=== PATIENT | female | born 1980 | race Caucasian/White ===

== ENCOUNTER 2016-12-01 19:24 | Emergency (ER) | payer BC ==
[2016-12-01] MEDS ORDERED: HYDROmorphone 2 MG/ML SDV ONE (19:43)
[2016-12-01] MEDS ORDERED: HYDROmorphone 2 MG/ML SDV IVPUSH ONE ×2 (19:44→21:05)
[2016-12-01] MEDS ORDERED: Ketorolac 30 MG/ML SDV IVPUSH ONE (19:53)
[2016-12-01] MEDS ORDERED: Iopamidol 755 Mg/ML 100 ML Bottle IV ONE (20:04)
[2016-12-01] MEDS ORDERED: Sodium Chloride 0.9% 1,000 ML IV ONE (20:39)
[2016-12-01] MEDS ORDERED: Tamsulosin 0.4 MG Cap.ER PO ONE ×2 (21:46→21:47)
[2016-12-01] MEDS ORDERED: Acetaminophen/HYDROcodone 325-5 MG Tab PO ONE (21:51)
[2016-12-01 22:11] VITALS: BP 117/67
--- NOTE | 2016-12-02 07:41 | ER ---
DATE SEEN: 12/01/2016 CHIEF COMPLAINT: Abdominal pain. HISTORY OF PRESENT ILLNESS: This is a 36-year-old female with sudden onset of pain in right lower quadrant for 1 hour, severe, associated with mild sweating, but no nausea or vomiting. No urinary symptoms. REVIEW OF SYSTEMS: Last menstrual period 2 weeks ago. PAST MEDICAL HISTORY: Kidney stones. ALLERGIES: None. PHYSICAL EXAMINATION: GENERAL: Appears very uncomfortable. VITAL SIGNS: Her blood pressure initially was 155/125 and temperature 98.1. ABDOMEN: Soft with mild tenderness in the right lower quadrant. No rebound. No rigidity. Bowel sounds are present. LABORATORY DATA: Normal electrolytes and CBC. Urine showed moderate occult blood. Few bacteria. On CT, 6 mm ureteric calculi. IMPRESSION: Ureteric calculi. PLAN: 1 L of normal saline, 30 mg of Toradol, and 2 mg of Dilaudid. The patient's symptoms improved. I discussed with Dr. Tiwari. Advised Flomax and an appointment tomorrow at the [facility]. Return to the ED if symptoms get worse tonight for admission and possible procedure this evening or tomorrow morning. Time seen was 1930 hours. /[id number] GUILHERME/TIBURCIO
--- NOTE | 2016-12-02 12:18 | CT ---
INDICATION: Right lower quadrant pain, question appendicitis. CT ABDOMEN AND PELVIS WITH CONTRAST: Spiral 2.5-mm axial sections were obtained through the abdomen and pelvis with sagittal and coronal reconstructions and 93 mL Isovue-370 at 2.7 mL per second, 12/01/2016, and compared with previous study of 07/05/2016. Total Exam DLP = 1213.12 mGy-cm. The lower lung russo and pleural spaces visualized appeared normal. The gallbladder is absent, compatible with history of its removal. The liver appeared normal. The common bile duct appeared normal in caliber for a post cholecystectomy patient. The left kidney and both adrenal glands, spleen, and pancreas appeared normal. There is pyelocaliectasis and ureterectasis on the right with the right kidney otherwise normal in appearance. A moderate degree of obstructive uropathy is present down to the level of the ureterovesical junction on the right, where a 6 -mm calculus is lodged. The urinary bladder is almost completely empty. There are again noted some minimal calcifications at the area of the right ovary with no significant enlargement in that area. No definite mass is seen compared with 07/05/2016. No other organomegaly, mass lesions, free fluid collections, or air-fluid levels were identified. What appears to be the appendix appeared normal with no evidence of appendicitis. IMPRESSION: 1. Obstructive uropathy on the right due to a 6-mm calculus at the right ureterovesical junction. 2. Post cholecystectomy. 3. Calcification at the right ovary with little change compared with the previous examination of 07/05/2016. CT PELVIS: Examination of the pelvis was obtained by CT, as noted above and compared with 07/05/2016, again reveals calcification and small cystic change at the right ovary. This is essentially unchanged from the previous examination. No finding to suggest a significant neoplastic process is identified in that area. There is evidence of a new finding in the pelvis of obstructive uropathy on the right due to a 6-mm calculus at the ureterovesical junction on the right. Report was called to Dr. Lopez at 2025 hours, 12/01/2016. JOE
== END 2016-12-01 22:15 | disposition home or self-care (01) ==
LOC: FB.ED 19:24
DX: N20.1 Calculus of ureter (principal)
CPT/HCPCS: 36415; 74177; 80048; 81001; 81025; 85025; 96361; 96374; 96375; 96376; 99284; A9270; J1170; J1885; J7040; Q9967

== ENCOUNTER 2017-06-12 20:58 | Emergency (ER) | payer BC, MEDICAID ==
[2017-06-12] MEDS ORDERED: cloNIDine 0.1 MG Tab PO ONE (21:14)
[2017-06-12 21:54] VITALS: BP 158/108
--- NOTE | 2017-06-14 00:56 | ER ---
DATE SEEN: 06/12/2017 TIME SEEN: 2100 hours. CHIEF COMPLAINT: 1. Pain tooth. 2. Hypertension. HISTORY OF PRESENT ILLNESS: This is a 37-year-old female, who was seen in the walk-in clinic because of pain tooth. She was noted to have high blood pressure. She is supposed to be taking hydrochlorothiazide, but has not taken in months. She is otherwise asymptomatic. REVIEW OF SYSTEMS: All other systems negative. ALLERGIES: No known allergies. PHYSICAL EXAMINATION: GENERAL: She is not in distress. VITAL SIGNS: Initial blood pressure 187/105. She has a normal pulse. ENT: Negative. NECK: No JVD. CHEST: Clear. CARDIOVASCULAR: Normal. IMPRESSION: Uncontrolled hypertension. PLAN: Clonidine x1 dose. Blood pressure came down to 158/108. Discharged home on lisinopril and hydrochlorothiazide 1 tablet a day and follow up in the office next week. Return to the ED with worsening symptoms. /[id number] GUILHERME/TIBURCIO
== END 2017-06-12 21:49 | disposition home or self-care (01) ==
LOC: FB.ED 20:58
DX: I10 Essential (primary) hypertension (principal); K08.89 Other specified disorders of teeth and supporting structures
CPT/HCPCS: 99283; A9270

== ENCOUNTER 2017-09-17 20:24 | Emergency (ER) | payer SELFPAY ==
[2017-09-17 22:31] VITALS: BP 134/82
--- NOTE | 2017-09-18 12:45 | CR ---
INDICATION: Chest pain. CHEST: PA and lateral views of the chest were obtained 09/17/2017 - no comparisons. Heart and mediastinum were unremarkable. A minimal dextroconvex scoliosis at the thoracolumbar spine is suggested - correlate clinically. Evidence of exogenous obesity is noted. Overlying EKG leads are noted. A definite active infiltrate or effusion was not identified. IMPRESSION: No acute process - multiple findings as noted above. MTDD
--- NOTE | 2017-09-18 14:10 | ER ---
DATE SEEN: 09/17/2017 TIME SEEN: The patient was seen at 2058 hours. CHIEF COMPLAINT: Chest pressure. HISTORY OF PRESENT ILLNESS: At 7 p.m. the patient had onset of chest pressure. She noted her home blood pressure measurement was 150/100 and vomited x2. She had similar pressure 2 weeks ago, was seen in [place] [facility] and has CAT scan of her head because she had headache, that CAT scan was negative. She takes losartan for blood pressure. In the past, she has used lisinopril, and this caused coughing, so it was discontinued. She does not take any blood pressure medicine now. She is overweight, weighs 188 pounds. Today describes her chest discomfort as 7/10 in discomfort, left anterior chest wall between her shoulder and her sternum. She places her hand over this area to demonstrate this. She notes it radiates to her posterior neck and scapular region and down her left arm and causes some tingling in her fingers. She noted the pain occurred tonight on her way home from [employer]. It was a pleasant day and she did not do anything unusual. Now, the chest discomfort is 5/10 in intensity, increases with deep and inspiration. She denies any new fever or cough or VTE or long distance rides, or leg pain or leg swelling. Last meal at 1500 hours was Maori fries. She has had previous cholecystectomy. She is a 4, para 3-1-0-3, nonsmoker and rare alcohol use. FAMILY HISTORY: Mother had elevated blood pressure. Maternal grandfather and maternal grandmother at age 52 and 60 of congestive heart failure. Father, she does not know anything about her father. She has 1 brother, who is alive and well, and half brother who is alive and well. 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 "She is on her feet all day." CURRENT MEDICATIONS: Losartan/hydrochlorothiazide 1 tablet daily 50/12.5. ALLERGIES: Lisinopril causes cough. PHYSICAL EXAMINATION: CONSTITUTION: Pleasant, mildly overweight woman, in mild distress. She is attended by her . She has appropriately articulate and describes things here the ER very nicely. HEENT: PERRLA intact. Pharynx without abnormality. NECK: No thyromegaly or masses. No cervical adenopathy. No tracheal tug or tracheal deviation (she is a nonsmoker). LUNGS: Clear without rales, rhonchi, or wheezes. HEART: S1, S2. No irregular rate and rhythm. No tachycardia. Chest wall demonstrated pain 2, 3, 4, costochondral joints and ribs 4, 5, 6, sternal chondral and costochondral joints. She feels the same pain that she was talking about before. She notes she has been lifting at the shelter as a MARKETING PR INTERN. ABDOMEN: Nontender. No hepatosplenomegaly. Bowel sounds are normal. Old healed scars. No hernia noted. No CVA percussion to tenderness. PELVIC: Not performed. RECTAL: Not performed. EXTREMITIES: Lower extremities without edema. No linear vascular abnormalities in lower extremities. No edema. NEURO: There are normal deep tendon reflexes in the upper and lower extremities. Cranial nerves 2 through 12 intact. No pronator drift. No muscle weakness in the upper and lower extremities. Gait appropriate. DIAGNOSTIC DATA: EKG normal sinus rhythm, 66. LABORATORY FINDINGS: Troponin is negative. D-dimer is negative. Potassium low normal 3.4. CBC is normal with a hemoglobin of 13.2, white count 8000, PMNs 50, lymphocytes 39, monos 7, and platelets 268,000. Urine drug screen is negative. Urinalysis negative. Chest x-ray is normal. No abnormalities noted. ASSESSMENT: 1. Left chest wall pain causing chest pains. 2. Chest wall pain secondary to costochondritis who works as a MARKETING PR INTERN. 3. Mild obesity. 4. Hypertension. Repeat blood pressure in the ED, moderately elevated. PLAN: Add Lopressor 25 mg. Follow up with doctor in a week. Continue other antihypertensive medicine. /[id number] VELASQUEZ/TIBURCIO DELA CRUZD
== END 2017-09-17 22:30 | disposition home or self-care (01) ==
LOC: FB.ED 20:24
DX: R07.89 Other chest pain (principal); I10 Essential (primary) hypertension; E66.9 Obesity, unspecified; Z68.28 Body mass index [BMI] 28.0-28.9, adult; Z88.8 Allergy status to other drugs, medicaments and biological substances; Z79.899 Other long term (current) drug therapy
CPT/HCPCS: 36415; 71046; 80053; 80305; 84484; 85025; 85379; 93005; 99285

== ENCOUNTER 2017-09-27 06:47 | Emergency (ER) | payer BC, MEDICAID ==
--- NOTE | 2017-09-27 07:25 | EDM.PDOC ---
ED HPI GENERAL MEDICAL PROBLEM - General Chief Complaint: General Stated Complaint: BLOOD PRESSURE Time Seen by Provider: 09/27/17 07:00 Source of Information: Reports: Patient, Family History Limitations: Reports: No Limitations - History of Present Illness INITIAL COMMENTS - FREE TEXT/NARRATIVE: 37 y.o.w.f came to the ed due to "not feeling well" at work. Her BP was checked which was elevated with a HR of 124. Pt felt dizzy and nauseated with back pain and ab. pain which made her to come to the ed. Pt has a h/o Kidney stones and on Ovarian cyst at her left side. No trauma. Tubal ligation few years ago. Pt has a h/o HTN, for which she takes lorsartan. No C/P. No Dysuria. No other acute med issues. BP 163/89 pulse 124 Pulse ox 98% on RA RR 18 temp 36.4 Onset Date: 09/27/17 Onset Time: 06:00 Duration: Intermittent Location: Reports: Back, Generalized Quality: Reports: Ache, Burning, Dull, Pressure Severity: Moderate Improves with: Reports: Rest Worsens with: Reports: Movement Context: Reports: Sick Contact Associated Symptoms: Reports: Nausea/Vomiting - Related Data Allergies Allergy/AdvReac Type Severity Reaction Status Date / Time No Known Allergies Allergy Verified 09/27/17 06:56 Home Meds: Home Meds Losartan/Hydrochlorothiazide [Losartan-HCTZ 50-12.5 MG] 1 each PO DAILY [History] Ondansetron [Zofran ODT] 4 mg PO Q6H PRN #20 tab.dis 09/27/17 [Rx] Orphenadrine [Norflex] 100 mg PO QID PRN #16 tab.er 09/27/17 [Rx] Past Medical History Cardiovascular History: Reports: Hypertension Gastrointestinal History: Reports: Cholelithiasis Genitourinary History: Reports: Renal Calculus 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 Musculoskeletal History: RIB AND SPINE FRACTURE - Infectious Disease History Infectious Disease History: Reports: Chicken Pox - Past Surgical History GI Surgical History: Reports: Cholecystectomy Female Surgical History: Reports: Lithotripsy/ESWL, Tubal Ligation Social & Family History - Family History Family Medical History: Noncontributory Cardiac: Reports: HI Other Cardiac Family History: grandfather had HI - Tobacco Use Smoking Status *Q: Former Smoker Used Tobacco, but Quit: Yes Month/Year Tobacco Last Used: 36 Second Hand Smoke Exposure: No - Caffeine Use Caffeine Use: Reports: Coffee - Recreational Drug Use Recreational Drug Use: No ED ROS GENERAL - Review of Systems Review Of Systems: See Below Constitutional: Reports: No Symptoms HEENT: Reports: No Symptoms Respiratory: Reports: No Symptoms Cardiovascular: Reports: Palpitations Endocrine: Reports: No Symptoms GI/Abdominal: Reports: No Symptoms, Nausea : Reports: Flank Pain Musculoskeletal: Reports: No Symptoms Skin: Reports: No Symptoms Neurological: Reports: No Symptoms Psychiatric: Reports: No Symptoms Hematologic/Lymphatic: Reports: No Symptoms Immunologic: Reports: No Symptoms ED EXAM, GENERAL - Physical Exam Exam: See Below Exam Limited By: No Limitations General Appearance: Alert, WD/WN, Mild Distress Eye Exam: Bilateral Eye: Normal Inspection Ears: Normal External Exam Ear Exam: Bilateral Ear: Auricle Normal Nose: Normal Inspection, Normal Mucosa Throat/Mouth: Normal Lips, Normal Gums, Normal Oropharynx, Normal Voice, No Airway Compromise, Other (dry mucosal membranes ) Head: Atraumatic, Normocephalic Neck: Normal Inspection, Supple, Non-Tender, Full Range of Motion Respiratory/Chest: No Respiratory Distress, Normal Breath Sounds, No Accessory Muscle Use, Chest Non-Tender Cardiovascular: No Edema, No JVD, No Murmur, No Rub, Tachycardia Peripheral Pulses: 1+: Radial (L) GI/Abdominal: Normal Bowel Sounds, Tender (RLQ of abdomen) (Female) Exam: Deferred Rectal (Female) Exam: Deferred Back Exam: Muscle Spasm (left mid back) Extremities: Normal Inspection, Normal Range of Motion, Non-Tender, No Pedal Edema, Normal Capillary Refill Neurological: Alert, Oriented, CN II-XII Intact, Normal Cognition, Normal Gait, No Motor/Sensory Deficits Psychiatric: Normal Affect, Normal Mood Skin Exam: Warm, Intact, Normal Color, No Rash Lymphatic: No Adenopathy EKG INTERPRETATION EKG Date: 09/27/17 Time: 07:40 Rhythm: NSR Rate (Beats/Min): 113 [place]: Normal P-Wave: Present QRS: Normal ST-T: Normal QT: Normal Comparison: NA - No Prior EKG Course - Vital Signs Text/Narrative:: 37 y.o.w.f came to the ed due to "not feeling well" at work. Her BP was checked which was elevated with a HR of 124. Pt felt dizzy and nauseated with back pain and ab. pain which made her to come to the ed. Pt has a h/o Kidney stones and on Ovarian cyst at her left side. No trauma. Tubal ligation few years ago. Pt has a h/o HTN, for which she takes lorsartan. No C/P. No Dysuria. No other acute med issues. BP 163/89 pulse 124 Pulse ox 98% on RA RR 18 temp 36.4 PE: WNWD W F with mid left upper back pain, Right flank pain, palpitations and not feeling well, does not smoke or drink. Imaging: CT abd/pevis neg for Appy and Kidney stones as per RAD, Pelvic US is: neg Labs; CBC, BMP nl UA pos for luis alfredo hematuria and bili Impression: Mid upper back pain. RLQ abd pain with palpation. Micr. hematuria, Palpitations, dehydration Tx: toradol, NS, Zofran, Norflex, reglan, Metoprolol and morphine sulphate Reexam: BP was 154/87 and pulse was 98 BPM on D/C, Pt improved Plan: D/C with instructions Last Recorded V/S: Last Vital Signs Temp 36.8 C 09/27/17 10:30 Pulse 88 09/27/17 12:42 Resp 14 09/27/17 12:42 BP 146/106 H 09/27/17 12:42 Pulse Ox 100 09/27/17 12:42 Orthostatic Blood Pressure [ 152/104 Standing] Orthostatic Blood Pressure [ 156/119 Sitting] Orthostatic Blood Pressure [ 152/104 Supine] - Orders/Labs/Meds Orders: Active Orders 24 hr Category Date Time Status Orthostatic Vital Signs [RC] ASDIRECTED Care 09/27/17 08:15 Active HCG QUALITATIVE,URINE [URCHEM] Stat Lab 09/27/17 08:05 Ordered UA W/MICROSCOPIC [URIN] Stat Lab 09/27/17 08:05 Ordered EKG 12 Lead [EK] Routine Ther 09/27/17 07:24 Ordered Labs: Laboratory Tests 09/27/17 09/27/17 09/27/17 Range/Units 07:39 07:39 07:39 WBC 7.7 (4.5-12.0) X10-3/uL RBC 5.14 (3.23-5.20) x10(6)uL Hgb 14.0 (11.5-15.5) g/dL Hct 43.0 (30.0-51.3) % MCV 83.7 (80-96) fL MCH 27.3 L (27.7-33.6) pg MCHC 32.6 (32.2-35.4) g/dL RDW 12.7 (11.5-15.5) % Plt Count 264 (125-369) X10(3)uL MPV 8.5 (7.4-10.4) fL Neut % (Auto) 79.8 (46-82) % Lymph % (Auto) 14.7 (13-37) % [place] % (Auto) 4.8 (4-12) % Eos % (Auto) 1 (1.0-5.0) % Baso % (Auto) 0 (0-2) % Neut # (Auto) 6.2 (1.6-8.3) # Lymph # (Auto) 1.1 (0.6-5.0) # [place] # (Auto) 0.4 (0.0-1.3) # Eos # (Auto) 0.0 (0.0-0.8) # Baso # (Auto) 0.0 (0.0-0.2) # Sodium 139 (135-145) mmol/L Potassium 3.5 (3.5-5.3) mmol/L Chloride 102 (100-110) mmol/L Carbon Dioxide 26 (21-32) mmol/L BUN 8 (7-18) mg/dL Creatinine 0.8 (0.55-1.02) mg/dL Est Cr Clr Drug Dosing 98.07 mL/min Estimated GFR (MDRD) > 60 (>60) BUN/Creatinine Ratio 10.0 (9-20) Glucose 96 (80-116) mg/dL Calcium 9.4 (8.6-10.2) mg/dL TSH, Ultra Sensitive 1.65 (0.36-3.74) IU/mL Urine Color (YELLOW) Urine Appearance (CLEAR) Urine pH (5.0-6.5) Ur Specific [place] (1.010-1.025) Urine Protein (NEGATIVE) mg/dL Urine Glucose (UA) (NEGATIVE) mg/dL Urine Ketones (NEGATIVE) mg/dL Urine Occult Blood (NEGATIVE) Urine Nitrite (NEGATIVE) Urine Bilirubin (NEGATIVE) Urine Urobilinogen (NEGATIVE) mg/dL Ur Leukocyte Esterase (NEGATIVE) Urine RBC (0) Urine WBC (0) Ur Squamous Epith Cells (NS,R,O) Urine Bacteria (NS) Urine HCG, Qual (NEGATIVE) 09/27/17 09/27/17 Range/Units 08:05 08:05 WBC (4.5-12.0) X10-3/uL RBC (3.23-5.20) x10(6)uL Hgb (11.5-15.5) g/dL Hct (30.0-51.3) % MCV (80-96) fL MCH (27.7-33.6) pg MCHC (32.2-35.4) g/dL RDW (11.5-15.5) % Plt Count (125-369) X10(3)uL MPV (7.4-10.4) fL Neut % (Auto) (46-82) % Lymph % (Auto) (13-37) % [place] % (Auto) (4-12) % Eos % (Auto) (1.0-5.0) % Baso % (Auto) (0-2) % Neut # (Auto) (1.6-8.3) # Lymph # (Auto) (0.6-5.0) # [place] # (Auto) (0.0-1.3) # Eos # (Auto) (0.0-0.8) # Baso # (Auto) (0.0-0.2) # Sodium (135-145) mmol/L Potassium (3.5-5.3) mmol/L Chloride (100-110) mmol/L Carbon Dioxide (21-32) mmol/L BUN (7-18) mg/dL Creatinine (0.55-1.02) mg/dL Est Cr Clr Drug Dosing mL/min Estimated GFR (MDRD) (>60) BUN/Creatinine Ratio (9-20) Glucose (80-116) mg/dL Calcium (8.6-10.2) mg/dL TSH, Ultra Sensitive (0.36-3.74) IU/mL Urine Color Yellow (YELLOW) Urine Appearance Clear (CLEAR) Urine pH 6.5 (5.0-6.5) Ur Specific [place] 1.010 (1.010-1.025) Urine Protein Negative (NEGATIVE) mg/dL Urine Glucose (UA) Normal (NEGATIVE) mg/dL Urine Ketones 15 H (NEGATIVE) mg/dL Urine Occult Blood Moderate H (NEGATIVE) Urine Nitrite Negative (NEGATIVE) Urine Bilirubin Moderate H (NEGATIVE) Urine Urobilinogen Normal (NEGATIVE) mg/dL Ur Leukocyte Esterase Negative (NEGATIVE) Urine RBC 5-10 (0) Urine WBC 0-5 (0) Ur Squamous Epith Cells Many H (NS,R,O) Urine Bacteria Many H (NS) Urine HCG, Qual Negative (NEGATIVE) Meds: Medications Discontinued Medications Generic Name Dose Route Start Last Admin Trade Name Freq PRN Reason Stop Dose Admin Sodium Chloride 1,000 mls @ 999 mls/hr 09/27/17 07:40 09/27/17 08:24 Normal Saline IV 09/27/17 08:40 999 mls/hr .BOLUS ONE Administration Sodium Chloride 1,000 mls @ 999 mls/hr 09/27/17 10:04 09/27/17 10:31 Normal Saline IV 09/27/17 11:04 999 mls/hr .BOLUS ONE Administration Ketorolac Tromethamine 30 mg 09/27/17 08:11 09/27/17 08:32 Toradol IVPUSH 09/27/17 08:12 30 mg ONETIME ONE Administration Metoclopramide HCl 10 mg 09/27/17 09:09 09/27/17 09:34 Reglan IV 09/27/17 09:10 10 mg ONETIME STA Administration Metoprolol Tartrate 2.5 mg 09/27/17 10:04 09/27/17 10:32 Lopressor IVPUSH 09/27/17 10:05 2.5 mg ONETIME ONE Administration Morphine Sulfate 2 mg 09/27/17 10:55 09/27/17 11:02 Morphine IVPUSH 09/27/17 10:56 Not Given ONETIME ONE Morphine Sulfate Confirm 09/27/17 10:58 09/27/17 11:02 Morphine Administered 09/27/17 10:59 2 mg Dose Administration 4 mg .ROUTE .STK-MED ONE Ondansetron HCl 8 mg 09/27/17 08:10 09/27/17 08:24 Zofran IVPUSH 09/27/17 08:11 8 mg ONETIME ONE Administration Orphenadrine Citrate 60 mg 09/27/17 12:34 09/27/17 12:39 Norflex IM 09/27/17 12:35 60 mg ONETIME STA Administration Departure - Departure Time of Disposition: 12:47 Disposition: Home, Self-Care 01 Condition: Good Clinical Impression: Pelvic pain, Nausea & vomiting, Dehydration Back pain Qualifiers: Back pain location: thoracic back pain Back pain laterality: left - Discharge Information Prescriptions: Ondansetron [Zofran ODT] 4 mg PO Q6H PRN #20 tab.dis PRN Reason: Nausea Orphenadrine [Norflex] 100 mg PO QID PRN #16 tab.er PRN Reason: back spasm Instructions: Metoclopramide injection, Ketorolac injection, Ondansetron injection, Dehydration, Adult, Devd-[id number], Thoracic Strain, [id number], Hypertension, Gshe-ah-[id number], Morphine injection solution Referrals: Pk Lopez MD [Primary Care Provider] - Forms: ED Department Discharge, ED Return to Work/School Form Additional Instructions: Please take the meds as recommended, please follow up with your regular MD for recheck within next 3-5 days at clinic, come back if your symptoms get worse acutely. - My Orders Last 24 Hours: My Active Orders 09/27/17 07:24 EKG 12 Lead [EK] Routine 09/27/17 08:05 HCG QUALITATIVE,URINE [URCHEM] Stat UA W/MICROSCOPIC [URIN] Stat 09/27/17 08:15 Orthostatic Vital Signs [RC] ASDIRECTED - Assessment/Plan Last 24 Hours: My Active Orders 09/27/17 07:24 EKG 12 Lead [EK] Routine 09/27/17 08:05 HCG QUALITATIVE,URINE [URCHEM] Stat UA W/MICROSCOPIC [URIN] Stat 09/27/17 08:15 Orthostatic Vital Signs [RC] ASDIRECTED
[2017-09-27] MEDS ORDERED: Sodium Chloride 0.9% 1,000 ML IV ONE ×2 (07:40→10:04)
[2017-09-27] MEDS ORDERED: Ondansetron 4 MG/2 ML SDV IVPUSH ONE (08:10)
[2017-09-27] MEDS ORDERED: Ketorolac 30 MG/ML SDV IVPUSH ONE (08:11)
[2017-09-27] MEDS ORDERED: Metoclopramide 10 MG/2 ML SDV IV STA (09:09)
[2017-09-27] MEDS ORDERED: Metoprolol Tartrate 5 MG/5 ML SDV IVPUSH ONE (10:04)
[2017-09-27] MEDS ORDERED: Morphine 2 MG/ML Syringe IVPUSH ONE (10:55)
[2017-09-27] MEDS ORDERED: Morphine 4 MG/ML Syringe ONE (10:58)
--- NOTE | 2017-09-27 11:06 | CT ---
INDICATION: Right lower quadrant abdominal pain, possible appendicitis. Question ovarian cyst. Pain with palpation in that area. Also left flank pain with history of kidney stones. Occult blood in urine. CT ABDOMEN AND PELVIS WITHOUT CONTRAST: Spiral 1.25-mm axial sections were obtained through the abdomen and pelvis without contrast, with sagittal and coronal reconstructions, 09/27/2017, and compared with 12/01/2016. Total Exam DLP = 1944.51 mGy-cm. Previously, there was obstructive uropathy on the right due to a calculus at the ureterovesical junction. At this time, there is no obstructive uropathy and no calculi seen in the kidneys, pyelocaliceal systems, or bladder. At the left ovary, there is a low-density mass of approximately 3 cm, likely representing a follicular cyst. Ultrasound of the pelvis would be confirmatory and could be obtained in 2 weeks for confirmation of involution. The right ovary appeared grossly unremarkable. The appendix appeared normal and is visualized on axial images #204 through # 240. No definite hernia was seen, although a minimal right inguinal hernia, including only fat may be present. This is a very minimal finding. No evidence of bowel obstruction or free air was seen. No gross herniation was identified. The liver appears normal with clips at the cystic duct, compatible with cholecystectomy. The spleen, adrenal glands, and pancreas appeared normal. No evidence of a retroperitoneal mass was identified, with some tiny retroperitoneal lymph nodes which are nonspecific. No other mass lesions, organomegaly, or free fluid collections, or nonvascular pathologic calcifications were identified. There are a few phleboliths in the pelvis. IMPRESSION: 1. No evidence of obstructive uropathy or renal calcinosis. No bladder calculi. 2. Probable physiologic cyst left ovary. 3. Appendix was unremarkable. 4. Tiny right inguinal hernia, including only fat, of questionable clinical significance. 5. Post cholecystectomy. 6. Probable follicular cyst left ovary, which could be confirmed by an ultrasound of the pelvis in 2 weeks. Report was called to Dr. Amato immediately after interpretation of the examination this a.m., 09/27/2017. [facility] CLINICMayelin
[2017-09-27 12:43] VITALS: BP 146/106
--- NOTE | 2017-09-27 14:12 | US ---
INDICATION: Pelvic pain right side. ULTRASOUND OF THE PELVIS, NON-OB: Multiple ultrasonic images were obtained with transabdominal probe and revealed the uterus to measure 10.3 x 3.6 x 4.9 cm. The right ovary measured 2.4 x 1.4 x 2.2 cm. The left ovary measured 3.82 x 2.62 x 2.51 cm. A 2-cm cystic structure is noted in the left ovary, which likely represents a follicular cyst. It measured approximately 21 mm. The uterus had a normal appearance, except to note a nabothian cyst at the cervix which measured approximately 11 mm x 11.5 mm. The endometrial cavity echo appeared grossly normal, measuring approximately 16 mm. No definite endometrial or uterine abnormality was identified. There are a few small follicles in the right ovary, which was otherwise unremarkable. No adnexal mass lesion or free fluid collection was identified. The urinary bladder, as partly visualized, had a normal appearance. IMPRESSION: As visualized, essentially normal pelvic ultrasound. Probable follicular cyst, 2 cm, at the left ovary. Need better visualization of the right side of the uterus with transvaginal probe. INDICATION: Pelvic pain right side/need better visualization of the uterus and ovaries than possible with the transabdominal probe. TRANSVAGINAL PELVIC ULTRASOUND NON-OB: Utilizing transvaginal probe, multiple ultrasonic images revealed the uterus to measure 9.7 x 5.47 x 4.4 cm. Endometrial cavity echo was 12 mm. The right ovary measured 2.4 x 2.1 x 1.6 cm. The left ovary measured 3.5 x 3.7 x 2.8 cm. The uterus, including the endometrial cavity echo appeared to be normal. No mass lesions were seen. No adnexal mass lesions or free fluid collections were identified. At the left ovary, there is a 2.3 cm cystic mass, compatible with a follicular cyst, which could be confirmed by re-examination by pelvic ultrasound in 2 weeks or 6 weeks. A few additional follicles are suggested at the left ovary. A minimal amount of free fluid adjacent to the left ovary is suggested and is likely to be physiologic. There is some fluid in the endocervical canal, which may be on the basis of menstrual cycle, but should be correlated clinically. The right ovary was not well visualized with the transvaginal probe. It appears to include a probable large follicle and a few small follicles. IMPRESSION: Minimal follicular changes and one follicular cyst on the left with some minimal follicles and one slightly prominent follicle on the right, measuring only 10 mm. No suspicious focal masses could be identified. Only a minimal amount of fluid is suggested near the left ovary, which may be physiologic. No specific abnormality could be identified in the left adnexa to suggest an etiology for the patient's right-sided pain. Question the possibility of a process such as mid cycle pain. Report was called to Dr. Amato at 1336 hours, 09/27/2017. [facility]
== END 2017-09-27 13:05 | disposition home or self-care (01) ==
LOC: FB.ED 06:47
DX: E86.0 Dehydration (principal); R00.2 Palpitations; M54.6 Pain in thoracic spine; R10.31 Right lower quadrant pain; R10.2 Pelvic and perineal pain; R11.2 Nausea with vomiting, unspecified; I10 Essential (primary) hypertension; Z87.891 Personal history of nicotine dependence
CPT/HCPCS: 36415; 74176; 76830; 76857; 80048; 81001; 81025; 84443; 85025; 93005; 96361; 96372; 96374; 96375; 99284; J1885; J2270; J2360; J2405; J2765; J7040; J3490

== ENCOUNTER 2019-09-12 22:32 | Emergency (ER) | payer MEDICAID, OTHER ==
[2019-09-12] MEDS ORDERED: Sodium Chloride 0.9% 10 ML Syringe FLUSH PRN (22:39)
[2019-09-12] MEDS ORDERED: Ondansetron 4 MG/2 ML SDV IVPUSH ONE (22:40)
[2019-09-12] MEDS ORDERED: Ketorolac 30 MG/ML SDV IVPUSH ONE (22:40)
[2019-09-12] MEDS ORDERED: Sodium Chloride 0.9% 1,000 ML IV SCH (22:45)
[2019-09-12] MEDS ORDERED: Iopamidol 755 Mg/ML 100 ML Bottle IV ONE (23:01)
--- NOTE | 2019-09-13 00:03 | EDM.PDOC ---
ED HPI GENERAL MEDICAL PROBLEM - General Chief Complaint: Flank Pain Stated Complaint: ABDOMINAL PAIN Time Seen by Provider: 09/12/19 22:35 Source of Information: Reports: Patient History Limitations: Reports: No Limitations - History of Present Illness INITIAL COMMENTS - FREE TEXT/NARRATIVE: Patient presented to the ED because of Rt LQ and RUQ pain. The pain is sharp and cramping,7/10. There is associated nausea but no vomiting. there is no fever ,chills, changes in bowel movements or urinary symptoms. She has a h/o nephrolithiasis that needs extraction 2 years ago. - Related Data Allergies Allergy/AdvReac Type Severity Reaction Status Date / Time No Known Allergies Allergy Verified 09/12/19 22:50 Home Meds: Home Meds NK [No Known Home Meds] 09/12/19 [History] Past Medical History Cardiovascular History: Reports: Hypertension Respiratory History: Reports: None Gastrointestinal History: Reports: Cholelithiasis Genitourinary History: Reports: Renal Calculus [employer] History: Reports: Other Musculoskeletal History: RIB AND SPINE FRACTURE Neurological History: Reports: None Psychiatric History: Reports: None Endocrine/Metabolic History: Reports: None Oncologic (Cancer) History: Reports: None Dermatologic History: Reports: None - Infectious Disease History Infectious Disease History: Reports: Chicken Pox - Past Surgical History GI Surgical History: Reports: Cholecystectomy Female Surgical History: Reports: Lithotripsy/ESWL, Tubal Ligation Social & Family History - Family History Family Medical History: Noncontributory Cardiac: Reports: AL Other Cardiac Family History: grandfather had AL - Tobacco Use Smoking Status *Q: Never Smoker - Caffeine Use Caffeine Use: Reports: Soda - Recreational Drug Use Recreational Drug Use: No ED ROS GENERAL - Review of Systems Review Of Systems: See Below Constitutional: Reports: No Symptoms HEENT: Reports: No Symptoms Respiratory: Reports: No Symptoms Cardiovascular: Reports: No Symptoms Endocrine: Reports: No Symptoms GI/Abdominal: Reports: Abdominal Pain, Nausea. Denies: Vomiting Musculoskeletal: Reports: No Symptoms Skin: Reports: No Symptoms Neurological: Reports: No Symptoms ED EXAM, GI/ABD - Physical Exam Exam: See Below Exam Limited By: No Limitations General Appearance: Alert, No Apparent Distress Ears: Normal External Exam, Normal Canal, Hearing Grossly Normal Nose: Normal Inspection, Normal Mucosa Throat/Mouth: Normal Inspection, Normal Lips Head: Atraumatic, Normocephalic Neck: Normal Inspection, Supple, Non-Tender Respiratory/Chest: No Respiratory Distress, Lungs Clear, Normal Breath Sounds Cardiovascular: Normal Peripheral Pulses, Regular Rate, Rhythm, No Edema GI/Abdominal Exam: Normal Bowel Sounds, Soft, Non-Tender Back Exam: Normal Inspection, Full Range of Motion Extremities: Normal Inspection, Normal Range of Motion, Non-Tender Neurological: Alert, CN II-XII Intact Psychiatric: Normal Affect, Normal Mood Skin Exam: Warm Course - Vital Signs Text/Narrative:: Labs reviewed and discussed with patient and verbalized understanding NS 1 L bolus Zofran 4 mg IV x1 Toradol 30 mg IV x1 Last Recorded V/S: Last Vital Signs Temp 36.3 C 09/13/19 00:15 Pulse 96 09/13/19 01:00 Resp 18 09/13/19 01:00 BP 179/116 H 09/13/19 01:00 Pulse Ox 98 09/13/19 01:00 - Orders/Labs/Meds Orders: Active Orders 24 hr Category Date Time Status Abdomen Pelvis w Cont [CT] Stat Exams 09/12/19 22:44 Taken Saline Lock Insert [OM.PC] Routine Oth 09/12/19 22:39 Ordered Labs: Laboratory Tests 09/12/19 09/12/19 09/12/19 Range/Units 22:55 22:55 22:55 WBC 9.7 (4.5-12.0) X10-3/uL RBC 4.97 (3.23-5.20) x10(6)uL Hgb 14.0 (11.5-15.5) g/dL Hct 41.9 (30.0-51.3) % MCV 84.2 (80-96) fL MCH 28.1 (27.7-33.6) pg MCHC 33.4 (32.2-35.4) g/dL RDW 12.9 (11.5-15.5) % Plt Count 191 (125-369) X10(3)uL MPV 9.1 (7.4-10.4) fL Neut % (Auto) 57.2 (46-82) % Lymph % (Auto) 33.3 (13-37) % [place] % (Auto) 6.2 (4-12) % Eos % (Auto) 1 (1.0-5.0) % Baso % (Auto) 2 (0-2) % Neut # (Auto) 5.5 (1.6-8.3) # Lymph # (Auto) 3.2 (0.6-5.0) # [place] # (Auto) 0.6 (0.0-1.3) # Eos # (Auto) 0.1 (0.0-0.8) # Baso # (Auto) 0.2 (0.0-0.2) # Sodium 140 (135-145) mmol/L Potassium 4.1 (3.5-5.3) mmol/L Chloride 104 (100-110) mmol/L Carbon Dioxide 28 (21-32) mmol/L BUN 10 (7-18) mg/dL Creatinine 0.9 (0.55-1.02) mg/dL Est Cr Clr Drug Dosing TNP Estimated GFR (MDRD) > 60 (>60) BUN/Creatinine Ratio 11.1 (9-20) Glucose 86 (80-116) mg/dL Calcium 8.0 L (8.6-10.2) mg/dL Total Bilirubin 0.3 (0.1-1.3) mg/dL AST 27 H D (5-25) IU/L ALT 15 D (12-36) U/L Alkaline Phosphatase 62 (56-112) IU/L Total Protein 7.2 (6.0-8.0) g/dL Albumin 3.3 L (3.5-5.2) g/dL Globulin 3.9 g/dL Albumin/Globulin Ratio 0.9 Amylase 45 (25-115) U/L Lipase 377 (73-393) U/L Urine Color (YELLOW) Urine Appearance (CLEAR) Urine pH (5.0-6.5) Ur Specific [place] (1.010-1.025) Urine Protein (NEGATIVE) mg/dL Urine Glucose (UA) (NORMAL) mg/dL Urine Ketones (NEGATIVE) mg/dL Urine Occult Blood (NEGATIVE) Urine Nitrite (NEGATIVE) Urine Bilirubin (NEGATIVE) Urine Urobilinogen (NEGATIVE) mg/dL Ur Leukocyte Esterase (NEGATIVE) Urine RBC (0-5) Urine WBC (0-5) Ur Squamous Epith Cells (NS,R,O) Amorphous Sediment Urine Bacteria (NS) 09/12/19 Range/Units 23:31 WBC (4.5-12.0) X10-3/uL RBC (3.23-5.20) x10(6)uL Hgb (11.5-15.5) g/dL Hct (30.0-51.3) % MCV (80-96) fL MCH (27.7-33.6) pg MCHC (32.2-35.4) g/dL RDW (11.5-15.5) % Plt Count (125-369) X10(3)uL MPV (7.4-10.4) fL Neut % (Auto) (46-82) % Lymph % (Auto) (13-37) % [place] % (Auto) (4-12) % Eos % (Auto) (1.0-5.0) % Baso % (Auto) (0-2) % Neut # (Auto) (1.6-8.3) # Lymph # (Auto) (0.6-5.0) # [place] # (Auto) (0.0-1.3) # Eos # (Auto) (0.0-0.8) # Baso # (Auto) (0.0-0.2) # Sodium (135-145) mmol/L Potassium (3.5-5.3) mmol/L Chloride (100-110) mmol/L Carbon Dioxide (21-32) mmol/L BUN (7-18) mg/dL Creatinine (0.55-1.02) mg/dL Est Cr Clr Drug Dosing Estimated GFR (MDRD) (>60) BUN/Creatinine Ratio (9-20) Glucose (80-116) mg/dL Calcium (8.6-10.2) mg/dL Total Bilirubin (0.1-1.3) mg/dL AST (5-25) IU/L ALT (12-36) U/L Alkaline Phosphatase (56-112) IU/L Total Protein (6.0-8.0) g/dL Albumin (3.5-5.2) g/dL Globulin g/dL Albumin/Globulin Ratio Amylase (25-115) U/L Lipase (73-393) U/L Urine Color Yellow (YELLOW) Urine Appearance Slightly cloudy (CLEAR) Urine pH 8.0 H (5.0-6.5) Ur Specific [place] 1.010 (1.010-1.025) Urine Protein Negative (NEGATIVE) mg/dL Urine Glucose (UA) Normal (NORMAL) mg/dL Urine Ketones Negative (NEGATIVE) mg/dL Urine Occult Blood Negative (NEGATIVE) Urine Nitrite Negative (NEGATIVE) Urine Bilirubin Negative (NEGATIVE) Urine Urobilinogen Normal (NEGATIVE) mg/dL Ur Leukocyte Esterase Moderate H (NEGATIVE) Urine RBC 0-5 (0-5) Urine WBC 0-5 (0-5) Ur Squamous Epith Cells Moderate H (NS,R,O) Amorphous Sediment Few Urine Bacteria Few H (NS) Meds: Medications Discontinued Medications Generic Name Dose Route Start Last Admin Trade Name Freq PRN Reason Stop Dose Admin Hydralazine HCl 20 mg 09/13/19 00:25 09/13/19 00:33 Apresoline IM 09/13/19 00:26 20 mg NOW STA Administration Sodium Chloride 1,000 mls @ 999 mls/hr 09/12/19 22:45 09/12/19 22:58 Normal Saline IV 999 mls/hr ASDIRECTED FLORENCIO Administration Iopamidol 100 ml 09/12/19 23:01 09/12/19 23:16 Isovue-370 (76%) IV 09/12/19 23:02 80 ml . DIRECTED ONE Administration Ketorolac Tromethamine 30 mg 09/12/19 22:40 09/12/19 23:00 Toradol IVPUSH 09/12/19 22:41 30 mg ONETIME ONE Administration Ondansetron HCl 4 mg 09/12/19 22:40 09/12/19 22:59 Zofran IVPUSH 09/12/19 22:41 4 mg ONETIME ONE Administration Sodium Chloride 10 ml 09/12/19 22:39 09/12/19 22:59 Saline Flush FLUSH 10 ml ASDIRECTED PRN Administration Keep Vein Open Departure - Departure Time of Disposition: 01:00 Disposition: Home, Self-Care 01 Condition: Good Clinical Impression: Colicky abdominal pain, Hypertensive crisis, Ureteric colic - Discharge Information Instructions: Renal Colic, [id number], Hypertension, Adult, [id number] Referrals: Pk Lopez MD [Primary Care Provider] - Forms: ED Department Discharge Additional Instructions: please read discharge instructions on renal colic and hypertensive crisis bland diet take ibuprofen 800 mg with tylenol 1000 mg every 8 hours as needed for pain follow up as needed Sepsis Event Note - Evaluation Sepsis Screening Result: No Definite Risk - Focused Exam Vital Signs: Vital Signs Temp Pulse Resp BP Pulse Ox 09/13/19 01:00 96 18 179/116 H 98 09/13/19 00:20 90 18 204/128 H 100 09/13/19 00:15 36.3 C 90 18 212/121 H 100 Date Exam was Performed: 09/13/19 Time Exam was Performed: 11:48 - My Orders Last 24 Hours: My Active Orders 09/12/19 22:39 Saline Lock Insert [OM.PC] Routine 09/12/19 22:44 Abdomen Pelvis w Cont [CT] Stat - Assessment/Plan Last 24 Hours: My Active Orders 09/12/19 22:39 Saline Lock Insert [OM.PC] Routine 09/12/19 22:44 Abdomen Pelvis w Cont [CT] Stat
[2019-09-13] MEDS ORDERED: hydrALAZINE 20 MG/ML SDV IM STA (00:25)
[2019-09-13 04:27] VITALS: BP 179/116; PULSE 96
== END 2019-09-13 01:05 | disposition home or self-care (01) ==
LOC: FB.ED 22:32
DX: N23 Unspecified renal colic (principal); I16.9 Hypertensive crisis, unspecified; Z90.49 Acquired absence of other specified parts of digestive tract
CPT/HCPCS: 36415; 74177; 80053; 81001; 82150; 83690; 85025; 96361; 96372; 96374; 96375; 99284; J0360; J1885; J2405; J7030; Q9967

== ENCOUNTER 2021-06-22 18:17 | Emergency (ER) | payer MEDICAID ==
[2021-06-22] MEDS ORDERED: Sulfamethoxazole/Trimethoprim 800-160 MG Tab PO ONE (18:18)
[2021-06-22] MEDS ORDERED: Sodium Chloride 0.9% 10 ML Syringe FLUSH PRN (18:39)
[2021-06-22] MEDS ORDERED: Morphine 2 MG/ML SYRINGE IVPUSH STA (18:40)
[2021-06-22] MEDS ORDERED: Ketorolac 30 MG/ML SDV IVPUSH STA (18:40)
[2021-06-22] MEDS ORDERED: Sodium Chloride 0.9% 1,000 ML IV SCH (18:45)
[2021-06-22] MEDS ORDERED: Labetalol 20 MG/4 ML Syringe IVPUSH STA (20:11)
[2021-06-22] MEDS ORDERED: Labetalol 20 MG/4 ML Syringe ONE (20:12)
[2021-06-22 20:41] VITALS: BP 148/100; PULSE 78
[2021-06-24 16:52] LABS: CORNONAVIRUS (COVID19) CSH-NRL Positive (Negative)
== END 2021-06-22 20:40 | disposition home or self-care (01) ==
LOC: FB.ED 18:17
DX: U07.1 COVID-19 (principal); N39.0 Urinary tract infection, site not specified; I10 Essential (primary) hypertension
CPT/HCPCS: 36415; 74176; 80048; 81001; 85025; 87086; 87635; 87804; 96374; 96375; 99284; A9270; J1885; J2270; J3490; J7030; U0003

== ENCOUNTER 2021-08-31 23:50 | Emergency (ER) | payer MEDICAID ==
[2021-09-01] MEDS ORDERED: Cyclobenzaprine 10 MG Tab PO STA (00:28)
[2021-09-01] MEDS ORDERED: Ketorolac 30 MG/ML SDV IM STA (00:28)
[2021-09-01] MEDS ORDERED: Sulfamethoxazole/Trimethoprim 800-160 MG Tab PO STA (01:01)
[2021-09-01 01:21] VITALS: BP 151/88; PULSE 96
== END 2021-09-01 01:05 | disposition home or self-care (01) ==
LOC: FB.ED 23:50
DX: N39.0 Urinary tract infection, site not specified (principal); M54.16 Radiculopathy, lumbar region; M54.40 Lumbago with sciatica, unspecified side
CPT/HCPCS: 81001; 87086; 87088; 87186; 96372; 99283; A9270-GY; J1885

== ENCOUNTER 2021-09-17 03:34 | Emergency (ER) | payer MEDICAID ==
[2021-09-17 06:07] VITALS: BP 160/98; PULSE 74
== END 2021-09-17 06:02 | disposition home or self-care (01) ==
LOC: FB.ED 03:34
DX: F32.A Depression, unspecified (principal); F41.9 Anxiety disorder, unspecified; I10 Essential (primary) hypertension; Z72.0 Tobacco use; Z20.822 Contact with and (suspected) exposure to COVID-19
CPT/HCPCS: 36415; 80053; 80179; 80307; 84443; 85025; 99282; 99284; U0002

== ENCOUNTER 2022-01-24 17:48 | Emergency (ER) | payer OTHER, MEDICAID ==
[2022-01-24] MEDS ORDERED: Ondansetron 4 MG Tab.DIS PO ONE ×2 (17:49→18:04)
[2022-01-24] MEDS ORDERED: Nitroglycerin 0.4 MG Tab.SL SL PRN (18:11)
[2022-01-24 18:12] LABS: ESTIMATED GFR 73 mL/min (>60)
[2022-01-24] MEDS ORDERED: Sodium Chloride 0.9% 10 ML Syringe FLUSH PRN (18:12)
[2022-01-24] MEDS ORDERED: Aspirin 81 MG Tab.Chew PO ONE (18:12)
[2022-01-24] MEDS ORDERED: Acetaminophen 500 MG Tab PO ONE (18:30)
[2022-01-24] MEDS ORDERED: cloNIDine 0.1 MG Tab PO ONE (18:31)
[2022-01-24] MEDS ORDERED: Metoprolol Tartrate 50 MG Tab PO ONE (18:33)
[2022-01-24] MEDS ORDERED: LORazepam 1 MG Tab PO ONE (19:16)
[2022-01-24] MEDS ORDERED: Losartan 50 MG Tab PO ONE (20:06)
[2022-01-24 21:37] VITALS: BP 159/99; PULSE 60
== END 2022-01-24 20:35 | disposition home or self-care (01) ==
LOC: FB.ED 17:48
DX: R07.9 Chest pain, unspecified (principal); F41.9 Anxiety disorder, unspecified; I16.0 Hypertensive urgency; I10 Essential (primary) hypertension; Z79.899 Other long term (current) drug therapy
CPT/HCPCS: 36415; 80048; 84484; 93005; 99285; A9270-GY; J3490; Q0162

== ENCOUNTER 2023-01-05 23:11 | Emergency (ER) | payer MEDICAID ==
[2023-01-05] MEDS ORDERED: LORazepam 2 MG/ML SDV IM ONE (23:27)
[2023-01-05] MEDS ORDERED: cloNIDine 0.1 MG Tab PO ONE (23:27)
[2023-01-06] MEDS ORDERED: Labetalol 20 MG/4 ML Syringe IVPUSH ONE ×2 (00:04→00:26)
[2023-01-06 00:26] LABS: BLOOD UREA NITROGEN,BUN 14 mg/dL (7-18); CALCIUM 8.5 mg/dL (8.6-10.2); CARBON DIOXIDE,CO2 28 mmol/L (21-32); CHLORIDE,CL 103 mmol/L (100-110); ESTIMATED GFR 73 mL/min (>60); GLUCOSE RANDOM 92 mg/dL (80-116); POTASSIUM,K 4.3 mmol/L (3.5-5.3); SODIUM,NA 138 mmol/L (135-145)
[2023-01-06 00:37] LABS: A/G RATIO 0.9; ALANINE AMINOTRANSFERASE,ALT 14 U/L (12-36); ALBUMIN 3.6 g/dL (3.5-5.2); ALKALINE PHOSPHATASE 64 IU/L (56-112); ASPARTATE AMNIOTRANSFERASE,AST 24 IU/L (5-25); BILIRUBIN TOTAL 0.3 mg/dL (0.1-1.3); PROTEIN TOTAL,TP 7.8 g/dL (6.0-8.0)
[2023-01-06 01:03] VITALS: PULSE 74
[2023-01-06 01:17] VITALS: BP 158/101
== END 2023-01-06 01:15 ==
LOC: FB.ED 23:11
DX: R07.89 Other chest pain (principal); I10 Essential (primary) hypertension; F41.9 Anxiety disorder, unspecified; Z86.16 Personal history of COVID-19
CPT/HCPCS: 36415; 80053; 84484; 93005; 93010; 96372; 96374; 99283; 99285-25; A9270-GY; J2060; J3490

== ENCOUNTER 2023-01-08 14:29 | Emergency (ER) | payer MEDICAID ==
[2023-01-08] MEDS ORDERED: Albuterol/Ipratropium 3.0-0.5 MG/3 ML Neb Soln NEB ONE (14:56)
[2023-01-08 15:02] LABS: BASOPHILS ABSOLUTE AUTO 0.1 x10-3/uL (0.0-0.1); BASOPHILS PERCENT AUTO 1.3 % (0.2-1.5); EOSINOPHILS ABSOLUTE AUTO 0.1 x10-3/uL (0.0-0.8); HEMATOCRIT 38.7 % (34.2-48.2); HEMOGLOBIN 12.4 g/dL (11.4-15.5); LYMPHOCYTES ABSOLUTE AUTO 1.5 x10-3/uL (1.0-4.4); LYMPHOCYTES PERCENT AUTO 21.7 % (18.4-52.1); MEAN CORPUSCULAR HEMOGLOBIN 24.1 pg (23.9-33.9); MEAN CORPUSCULAR HGB CONC 32.2 g/dL (31.9-34.8); MEAN CORPUSCULAR VOLUME 74.8 fL (76.7-100.5); MEAN PLATELET VOLUME 8.1 fL (7.1-12.4); MONOCYTES ABSOLUTE AUTO 0.5 x10-3/uL (0.3-1.0); MONOCYTES PERCENT AUTO 7.3 % (4.4-15.7); NEUTROPHILS ABSOLUTE AUTO 4.7 x10-3/uL (1.5-6.3); NEUTROPHILS PERCENT AUTO 68.7 % (30.8-76.2); PLATELET COUNT,PLT 250 x10(3)uL (151-488); RED BLOOD CELL COUNT 5.17 x10(6)uL (3.60-5.20); RED CELL DISTRIBUTION WIDTH 15.1 % (12.3-16.5); WHITE BLOOD CELL COUNT,WBC 6.8 x10-3/uL (3.0-10.3)
[2023-01-08 15:10] LABS: BLOOD UREA NITROGEN,BUN 17 mg/dL (7-18); CALCIUM 8.7 mg/dL (8.6-10.2); CARBON DIOXIDE,CO2 26 mmol/L (21-32); CHLORIDE,CL 104 mmol/L (100-110); ESTIMATED GFR 73 mL/min (>60); GLUCOSE RANDOM 118 mg/dL (80-116); POTASSIUM,K 4.2 mmol/L (3.5-5.3); SODIUM,NA 139 mmol/L (135-145)
[2023-01-08 15:18] LABS: A/G RATIO 0.9; ALANINE AMINOTRANSFERASE,ALT 24 U/L (12-36); ALBUMIN 3.5 g/dL (3.5-5.2); ALKALINE PHOSPHATASE 66 IU/L (56-112); ASPARTATE AMNIOTRANSFERASE,AST 23 IU/L (5-25); BILIRUBIN TOTAL 0.4 mg/dL (0.1-1.3); PROTEIN TOTAL,TP 7.5 g/dL (6.0-8.0); TROPONIN I 10.5 pg/mL (4.0-60.3)
[2023-01-08 15:20] LABS: C-REACTIVE PROTEIN < 0.05 mg/dL (<0.33)
[2023-01-08] MEDS ORDERED: Ketorolac 30 MG/ML SDV IM ONE (15:39)
[2023-01-08] MEDS ORDERED: Losartan 50 MG Tab PO ONE (15:40)
[2023-01-08 17:57] VITALS: BP 161/98; PULSE 61
== END 2023-01-08 17:37 | disposition home or self-care (01) ==
LOC: FB.ED 14:29
DX: R07.1 Chest pain on breathing (principal); R07.2 Precordial pain; I10 Essential (primary) hypertension; Z86.16 Personal history of COVID-19; Z79.899 Other long term (current) drug therapy
CPT/HCPCS: 36415; 71046; 80053; 84484; 84702; 85025; 85379; 86140; 93005; 93010; 94640; 96372; 99283; 99285; A9270-GY; J1885; J7620